=== PATIENT | female | born 1980 | race African-American/Black ===

== ENCOUNTER 2017-12-18 09:55 | Outpatient (CLI) | payer OTHER ==
--- NOTE | 2017-12-18 13:32 | Mammography Report ---
Bilateral mammogram and bilateral breast ultrasound: Baseline mammogram on a patient with palpable left breast mass. A marker was placed over the area of concern in the superior left breast. Routine views as well as spot compression imaging of the left breast is performed with standard imaging of the right breast. The patient has a very dense breast pattern which is diffusely distributed and symmetric bilaterally. No focal findings identified in the right breast. In the left breast on the lateral projections there is a smooth circumscribed mass which is elongated measuring 2.1 cm. It is not visualized in the cc projection. No other findings. Ultrasound of the right breast is unremarkable. Imaging of the left breast demonstrates a circumscribed inhomogeneously hypoechoic mass at 12:00 consistent with the palpable lesion. It measures 19 mm in greatest dimension. In the 10:00 location there is a homogeneously hypoechoic and circumscribed mass measuring 7.2 mm. It is slightly elongated. A benign-appearing lymph node is identified in the axilla. CAD used. Impressions: The palpable mass in the left breast is consistent with the larger mammographic lesion. 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 Recommendation: Ultrasound-guided biopsy of the dominant left breast mass. The findings recommendations have been discussed with the patient. She has been instructed to contact you. I have left a message on your office recorder. BI-RADS CATEGORY: 4 = Suspicious ACR BI-RADS MAMMOGRAPHIC CODES: 0 = Needs additional imaging evaluation; 1 = Negative; 2 = Benign; 3 = Probably benign; 4 = Suspicious; 5 = Malignant; 6 = Known biopsy-proven malignancy COMMENT: 1. Dense breast tissue, i.e., adenosis, fibrocystic changes, etc., may obscure an underlying neoplasm. 2. Approximately 10% of cancers are not detected with mammography. 3. A negative mammography report should not delay biopsy if a clinically suspicious mass is present.
== END 2017-12-18 09:56 | disposition home or self-care (01) ==
LOC: MAMMO 09:55
PROVIDERS: ATTEND Internal Medicine
DX: N63.20 Unspecified lump in the left breast, unspecified quadrant (principal)
CPT/HCPCS: 77066

== ENCOUNTER 2018-01-24 13:06 | Outpatient (CLI) | payer OTHER ==
--- NOTE | 2018-01-24 14:17 | History and Physical Report ---
History of Present Illness Date of examination: 01/24/18 Chief complaint: ltlt lt. breast lesion Medications and Allergies Allergies Allergy/AdvReac Type Severity Reaction Status Date / Time No Known Allergies Allergy Unverified 12/18/17 09:56
--- NOTE | 2018-01-24 14:18 | Procedure Note ---
Date of procedure: 01/24/18 Pre-op diagnosis: lt breast lesion Post-op diagnosis: same Procedure: u/s guided bx Anesthesia: local Surgeon: SILVER VENTURA Estimated blood loss: none Pathology: list (lt. breast tissue) Specimen disposition: to lab Condition: stable Disposition: same day
--- NOTE | 2018-01-24 14:59 | Mammography Report ---
Ultrasound guided left breast biopsy, marker placement, bilateral mammogram: Patient with left breast mass. The mass is located in the superior breast. A lateral approach utilized. The patient was draped and cleansed. 1% lidocaine infiltrated. A 13-gauge guide was introduced percutaneously through which multiple biopsy specimens were obtained using a 14-gauge disposable Bard biopsy device. Biopsies obtained under ultrasound guidance. A marker was placed in the entrance site was bandaged. A 2 view followup mammogram demonstrates that the marker lies at along the anterior margin of the nodule. There were no procedural or patient complications encountered and the patient was given followup instructions prior to discharge.
== END 2018-01-24 13:07 | disposition home or self-care (01) ==
LOC: SPVWC 13:06
PROVIDERS: ATTEND Internal Medicine
DX: N64.89 Other specified disorders of breast (principal)
CPT/HCPCS: 19083; 77065; 88305; A4648